=== PATIENT | female | born 1985 | race Caucasian/White ===

== ENCOUNTER → 2021-08-28 | Outpatient (CLI) ==
[2021-08-28 13:57] LABS: BASOPHILS % (AUTO) 0 % (0-10); EOSINOPHILS # (AUTO) 0.2 10^3/uL (0.0-0.3); EOSINOPHILS % (AUTO) 2 % (0-10); HEMATOCRIT 38 % (35-52); HEMOGLOBIN 13.3 g/dL (11.5-16.0); LYMPHOCYTES # (AUTO) 3.4 10^3/uL (1.0-4.0); LYMPHOCYTES % (AUTO) 33 % (12-44); MEAN CORPUSCULAR HEMOGLOBIN 30 pg (25-34); MEAN CORPUSCULAR HGB CONC 35 g/dL (32-36); MEAN CORPUSCULAR VOLUME 86 fL (80-99); MEAN PLATELET VOLUME 10.1 fL (9.0-12.2); MONOCYTES # (AUTO) 0.5 10^3/uL (0.0-1.0); MONOCYTES % (AUTO) 5 % (0-12); NEUTROPHILS % (AUTO) 59 % (42-75); PLATELET COUNT 284 10^3/uL (130-400); WHITE BLOOD COUNT 10.3 10^3/uL (4.3-11.0)
[2021-08-28 14:16] LABS: ALBUMIN 4.2 GM/DL (3.2-4.5)
[2021-08-28 14:17] LABS: POTASSIUM 3.6 MMOL/L (3.6-5.0)
[2021-08-28 14:18] LABS: CALCIUM 9.2 MG/DL (8.5-10.1)
[2021-08-28 14:19] LABS: TOTAL PROTEIN 7.2 GM/DL (6.4-8.2)
[2021-08-28 14:21] LABS: BILIRUBIN,TOTAL 0.4 MG/DL (0.1-1.0)
[2021-08-28 14:23] LABS: CREATININE SERUM 0.59 MG/DL (0.60-1.30)
[2021-08-28 21:19] LABS: HEPATITIS C ANTIBODY C Non-Reactive (Non-Reactive)
== END ==
LOC: LABNPT 13:43
PROVIDERS: ATTEND Obstetrics & Gynecology
DX: Z36.9 Encounter for antenatal screening, unspecified (principal)
CPT/HCPCS: 80053; 83036; 84443; 84702; 85025; 86703; 86780; 86803; 86850; 86900; 86901; 87077; 87088; 87186; 87340

== ENCOUNTER → 2021-11-25 | Outpatient (CLI) | payer BC, OTHER ==
--- NOTE | 2021-11-25 17:39 | Diagnostic Imaging Report ---
INDICATION: survey. TECHNIQUE: Multiple real-time grayscale images were obtained over the gravid uterus. COMPARISON: None. FINDINGS: This study was technically difficult due to the patient's body habitus. There is a single live fetus in transverse presentation. heart motion was noted and a rate of 122 BPM is recorded. There were no abnormalities identified. However, the ventricular outflow tracts were not well visualized. The growth parameters are fairly uniform. The placenta is anterior and there is no previa. The amniotic fluid volume is within normal limits. The cervix was identified and measures 8.9 cm in length. Our sonologist suggested there may be some funneling of fluid into the proximal cervix. I am not certain that there is actually funneling of the fluid. Even so, it may prove worthwhile to have a short-term (4-6 weeks) follow-up exam for further study. Biometrical measurements are as follows: Biparietal 4.69 cm, age 20 weeks 2 days. Head circumference 18.12 cm, age 20 weeks 4 days. Abdominal circumference 15.34 cm, age 20 weeks 4 days. Femur length 3.16 cm, age 19 weeks 6 days. Sonographic estimate age: 20 weeks 3 days. Sonographic estimated date of delivery: 04/11/2022. Estimated Weight: 341 gm (+/- 50 gm). LMP percentile: 28%. heart rate: 121 beats per minute. number: 1 of 1. IMPRESSION: 1. There is a single live fetus of approximately 20 weeks 3 days gestation +/- 1.5 weeks. The EDC is April 11, 2022. 2. There were no abnormalities identified, although the ventricular outflow tracts were not well visualized. 3. The growth parameters are fairly uniform. 4. There is a question of early funneling of the fluid into the cervix. Recommendations as above. Dictated by: Dictated on workstation # [id number]
== END ==
LOC: RAD 11:42
PROVIDERS: ATTEND Obstetrics & Gynecology
DX: Z36.9 Encounter for antenatal screening, unspecified (principal); Z3A.20 20 weeks gestation of pregnancy
CPT/HCPCS: 76805

== ENCOUNTER 2022-03-26 15:05 | Outpatient (CLI) | payer BC, OTHER ==
[2022-03-26 12:17] VITALS: BP 120/80
[2022-03-26] MEDS ORDERED: PREN1TAB79 PO (16:21)
[2022-03-26] MEDS ORDERED: INSU100V5 SQ ×2 (16:21)
[2022-03-26 16:24] VITALS: BP 120/80
[2022-03-26 16:45] VITALS: BP 120/80
--- NOTE | 2022-03-29 08:14 | Physician Query-Final Dx ---
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 NST wnl today. Patient discharged home in stable medical condition with return precautions. JANINA,MayMar 29, 2022 08:14 ALBAN QUICK MD Mar 29, 2022 23:05
== END 2022-03-26 16:45 | disposition home or self-care (01) ==
LOC: WSo 15:05 → LDRP 15:05 → WSo 16:45
PROVIDERS: ATTEND Obstetrics & Gynecology
DX: O24.313 Unspecified pre-existing diabetes mellitus in pregnancy, third trimester (principal); O99.413 Diseases of the circulatory system complicating pregnancy, third trimester; Z3A.37 37 weeks gestation of pregnancy
CPT/HCPCS: 59025